=== PATIENT | female | born 1995 | race Caucasian/White ===

== ENCOUNTER 2017-10-30 15:52 | Emergency (ER) | payer BC ==
[2017-10-30 16:17] VITALS: BP 119/72
--- NOTE | 2017-10-30 16:54 | UC ---
Respiratory Complaint HPI - HPI Summary HPI Summary: Fever on . Woke up the next day with cough. Wheezing. Productive. Sinus pain. - History of Current Complaint Chief Complaint: UCRespiratory Stated Complaint: COUGH Time Seen by Provider: 10/30/17 16:40 Hx Obtained From: Patient Hx Last Menstrual Period: 09/30/17 ?: No Onset/Duration: Sudden Onset - 3, Lasting Days - 3, Worse Since - onset Timing: Constant Severity Initially: Mild Severity Currently: Moderate Pain Intensity: 0 Character: Cough: Productive Associated Signs And Symptoms: Positive: Fever, Wheezing, URI, Nasal Congestion , Hoarseness, Sinus Discomfort - Allergies/Home Medications Allergies/Adverse Reactions: Allergies Allergy/AdvReac Type Severity Reaction Status Date / Time No Known Allergies Allergy Verified 10/30/17 16:10 Home Medications: Home Medications Dextromethorphan Polistirex [Delsym] 30 mg PO BID PRN 10/30/17 [History Confirmed 10/30/17] diPHENhydraMINE PO* [Benadryl PO 25 MG TAB*] 25 mg PO Q6H PRN 10/30/17 [History Confirmed 10/30/17] PMH/Surg Hx/FS Hx/Imm Hx Previously Healthy: Yes - Surgical History Surgical History: None - Family History Known Family History: Positive: Hypertension Negative: Diabetes - Social History Occupation: Employed Full-time Lives: With Family - girlfriend Alcohol Use: None Substance Use Type: None Smoking Status (MU): Light Every Day Tobacco Smoker Type: Cigarettes Amount Used/How Often: 2 cigarettes daily- quit 1 week ago Review of Systems Constitutional: Fever ENT: Sinus Pain/Tenderness Respiratory: Shortness Of Breath, Cough Is Patient Immunocompromised?: No All Other Systems Reviewed And Are Negative: Yes Physical Exam Triage Information Reviewed: Yes Appearance: No Pain Distress, Well-Nourished, Ill-Appearing Vital Signs: Initial Vital Signs Temp 99.4 F 10/30/17 16:12 Pulse 100 10/30/17 16:12 Resp 16 10/30/17 16:12 BP 119/72 10/30/17 16:12 Pulse Ox 100 10/30/17 16:12 Vital Signs Reviewed: Yes Eyes: Positive: Conjunctiva Clear ENT: Positive: Pharynx normal, Nasal congestion - with allergic changes.. Negative: TMs normal - with retraction Neck exam: Normal Respiratory: Positive: Wheezing - expiratory wheeze with coughing Cardiovascular Exam: Normal Musculoskeletal Exam: Normal Neurological Exam: Normal Psychological Exam: Normal Skin Exam: Normal UC Diagnostic Evaluation - Laboratory O2 Sat by Pulse Oximetry: 100 Respiratory Course/Dx - Differential Dx/Diagnosis Differential Diagnosis/HQI/PQRI: Asthma, Exacerbation Of COPD, Lower Resp Infection, Sinusitis Provider Diagnoses: Acute URI. Acute sinusitis. Acute bronchospasm. Allergic rhinitis. Discharge - Sign-Out/Discharge Documenting (check all that apply): Discharge/Admit/Transfer - Discharge Plan Condition: Stable Disposition: HOME Prescriptions: Amoxicillin PO (*) [Amoxicillin 875 MG (*)] 875 mg PO BID #20 tab predniSONE TAB* [Deltasone TAB*] 20 mg PO DAILY #18 tab Patient Education Materials: Upper Respiratory Infection (ED), Bronchospasm (ED ), Sinusitis (ED), Amoxicillin (By mouth), Prednisone (By mouth) Referrals: Non Staff,Doctor [Primary Care Provider] - Additional Instructions: [email or web address] SINUS RINSE: CHECK OUT AT [email or web address] Saline nasal wash helps with mucous, allergies and congestion. It can be used up to twice a day or only as needed. Use lukewarm tap water. It does not have to be sterilized or distilled water. Do 1/3 on each side and snort out of both nostrils. Repeat the process with 1/6 of the bottle on each side with snorting in between to finish the solution in the bottle - Billing Disposition and Condition Condition: STABLE Disposition: HOME
== END 2017-10-30 17:09 | disposition home or self-care (01) ==
LOC: UCCORT 15:52
DX: J06.9 Acute upper respiratory infection, unspecified (principal); J01.90 Acute sinusitis, unspecified; J98.01 Acute bronchospasm; J30.9 Allergic rhinitis, unspecified; F17.210 Nicotine dependence, cigarettes, uncomplicated
CPT/HCPCS: 99202; G0463

== ENCOUNTER 2018-12-13 17:32 | Emergency (ER) | payer BC ==
[2018-12-13 18:40] VITALS: BP 128/69
--- NOTE | 2018-12-13 18:59 | UC ---
Lower Extremity/Ankle HPI - HPI Summary HPI Summary: hit right foot on sofa last night pain and bruising 3/4/5 distal metatarsal---n/ m/c intact is able to WB - History of Current Complaint Chief Complaint: UCLowerExtremity Stated Complaint: RIGHT FOOT INJURY Time Seen by Provider: 12/13/18 18:50 Hx Obtained From: Patient Hx Last Menstrual Period: 11/26/18 ?: No Onset/Duration: Sudden Onset Pain Intensity: 6 - refused pain medication Pain Scale Used: 0-10 Numeric Aggravating Factor(s): Standing, Ambulation Alleviating Factor(s): Rest, Elevation, OTC Meds Able to Bear Weight: Yes - Allergies/Home Medications Allergies/Adverse Reactions: Allergies Allergy/AdvReac Type Severity Reaction Status Date / Time No Known Allergies Allergy Verified 12/13/18 18:33 Home Medications: Home Medications NK [No Home Medications Reported] 12/13/18 [History Confirmed 12/13/18] PMH/Surg Hx/FS Hx/Imm Hx Previously Healthy: Yes - Surgical History Surgical History: None - Family History Known Family History: Positive: Hypertension Negative: Diabetes - Social History Occupation: Employed Full-time Lives: With Family Alcohol Use: Occasionally Substance Use Type: None Smoking Status (MU): Former Smoker Type: Cigarettes Amount Used/How Often: 2 cigarettes daily- quit 1 week ago Have You Smoked in the Last Year: No When Did the Patient Quit Smoking/Using Tobacco: SUMMER 2017 Review of Systems All Other Systems Reviewed And Are Negative: Yes Constitutional: Positive: Negative Skin: Positive: Bruising - right 3,4,5 distal foot Eyes: Positive: Negative ENT: Positive: Negative Respiratory: Positive: Negative Cardiovascular: Positive: Negative Gastrointestinal: Positive: Negative Genitourinary: Positive: Negative Motor: Positive: Negative Neurovascular: Positive: Negative Musculoskeletal: Positive: Negative Neurological: Positive: Negative Psychological: Positive: Negative Is Patient Immunocompromised?: No Physical Exam Triage Information Reviewed: Yes Appearance: Well-Appearing, No Pain Distress, Well-Nourished Vital Signs: Initial Vital Signs Temp 98.2 F 12/13/18 18:33 Pulse 62 12/13/18 18:33 Resp 16 12/13/18 18:33 BP 128/69 12/13/18 18:33 Pulse Ox 100 12/13/18 18:33 Vital Signs Reviewed: Yes Eye Exam: Normal Eyes: Positive: Conjunctiva Clear ENT Exam: Normal ENT: Positive: Normal ENT inspection, Hearing grossly normal. Negative: Trismus , Muffled voice, Hoarse voice Dental Exam: Normal Neck exam: Normal Neck: Positive: Supple, Nontender, No Lymphadenopathy Respiratory Exam: Normal Respiratory: Positive: Chest non-tender, No respiratory distress, No accessory muscle use Cardiovascular Exam: Normal Cardiovascular: Positive: RRR, Pulses Normal, Brisk Capillary Refill Musculoskeletal Exam: Normal Musculoskeletal: Positive: Strength Intact, ROM Intact, Edema @ - 3/4/5 mt area distally bruised and swollen Neurological Exam: Normal Neurological: Positive: Alert, Muscle Tone Normal Psychological Exam: Normal Psychological: Positive: Normal Response To Family, Age Appropriate Behavior Skin Exam: Normal Diagnostics - Radiology No standard instances Summary of Radiographic Findings: fx proximal base 5th toe Lower Extremity Course/Dx - Course Course Of Treatment: post op shoe, rice, ibuprofen follow with Dr. Solis this week - Differential Dx/Diagnosis Provider Diagnosis: Fracture of fifth toe, right, closed Discharge - Sign-Out/Discharge Documenting (check all that apply): Patient Departure All imaging exams completed and their final reports reviewed: No - Discharge Plan Condition: Stable Disposition: HOME Patient Education Materials: Ibuprofen (By mouth), Toe Fracture (ED), R.I.C.E. Treatment (ED) Referrals: Raghav Solis MD [Medical Doctor] - 3 Days - Billing Disposition and Condition Condition: STABLE Disposition: Home
--- NOTE | 2018-12-14 07:58 | UC ---
- Progress Note Progress Note: No change from initial management - patient to follow up with Orthopedics - EKG/XRAY/CT Xray Comments: right nondisplace fracture base of 5th proximal phalange Course/Dx - Diagnoses Provider Diagnoses: Fracture of fifth toe, right, closed Discharge - Sign-Out/Discharge Documenting (check all that apply): Post-Discharge Follow Up All imaging exams completed and their final reports reviewed: Yes - Discharge Plan Condition: Stable Disposition: HOME Patient Education Materials: Ibuprofen (By mouth), Toe Fracture (ED), R.I.C.E. Treatment (ED) Referrals: Raghav Solis MD [Medical Doctor] - 3 Days - Billing Disposition and Condition Condition: STABLE Disposition: Home
== END 2018-12-13 19:30 | disposition home or self-care (01) ==
LOC: UCCORT 17:32
DX: S92.514A Nondisplaced fracture of proximal phalanx of right lesser toe(s), initial encounter for closed fracture (principal); W22.03XA Walked into furniture, initial encounter; Y92.9 Unspecified place or not applicable; Z87.891 Personal history of nicotine dependence
CPT/HCPCS: 99212; G0463

== ENCOUNTER 2019-01-02 09:18 | Emergency (ER) | payer BC ==
[2019-01-02 09:35] VITALS: BP 114/64
--- NOTE | 2019-01-02 09:45 | UC ---
Abdominal Pain Female HPI - HPI Summary HPI Summary: Pt presents with c/o sudden onset of abdominal discomfort, nausea and loose stools X 3 days. Pt denies fever or chills. Denies risk for or urinary symptoms. - History of Current Complaint Chief Complaint: UCGI Stated Complaint: NAUSEA,DIARRHEA Time Seen by Provider: 01/02/19 09:30 Hx Obtained From: Patient Hx Last Menstrual Period: 12/26/18 ?: No Onset/Duration: Sudden Onset, Lasting Days, Still Present Timing: Constant Severity Initially: Mild Severity Currently: Mild Pain Intensity: 4 Location: Diffuse Radiates: No Character: Colicy, Cramping, Dull Aggravating Factor(s): Food Alleviating Factor(s): Antacids - OTC tums gives temporary relief. Associated Signs and Symptoms: Positive: Decreased Appetite, Nausea, Diarrhea - Risk Factors Ectopic Risk Factor: Negative Ovarian Torsion Risk Factor: Reproductive Age Allergies/Adverse Reactions: Allergies Allergy/AdvReac Type Severity Reaction Status Date / Time No Known Allergies Allergy Verified 01/02/19 09:27 Home Medications: Home Medications Calcium Carbonate CHEW TAB* [Tums*] 1,000 mg PO Q4H PRN 01/02/19 [History Confirmed 01/02/19] Ibuprofen TAB* [Advil TAB*] 200 mg PO BID PRN 01/02/19 [History Confirmed ] PMH/Surg Hx/FS Hx/Imm Hx Previously Healthy: Yes - Surgical History Surgical History: None - Family History Known Family History: Positive: Hypertension Negative: Diabetes - Social History Occupation: Employed Full-time Lives: With Family Alcohol Use: Occasionally Substance Use Type: None Smoking Status (MU): Former Smoker Type: Cigarettes Amount Used/How Often: 2 cigarettes daily- quit 1 week ago Have You Smoked in the Last Year: No When Did the Patient Quit Smoking/Using Tobacco: SUMMER 2017 - Immunization History Vaccination Up to Date: Yes Review of Systems All Other Systems Reviewed And Are Negative: Yes Constitutional: Positive: Fatigue Skin: Positive: Negative Eyes: Positive: Negative ENT: Positive: Negative Respiratory: Positive: Negative Cardiovascular: Positive: Negative Gastrointestinal: Positive: Abdominal Pain, Diarrhea, Nausea Genitourinary: Positive: Negative Motor: Positive: Negative Neurovascular: Positive: Negative Musculoskeletal: Positive: Negative Neurological: Positive: Negative Psychological: Positive: Negative Is Patient Immunocompromised?: No Physical Exam Triage Information Reviewed: Yes Appearance: Well-Appearing Vital Signs: Initial Vital Signs Temp 97.1 F 01/02/19 09:29 Pulse 59 01/02/19 09:29 Resp 15 01/02/19 09:29 BP 114/64 01/02/19 09:29 Pulse Ox 100 01/02/19 09:29 Vital Signs Reviewed: Yes Eye Exam: Normal ENT Exam: Normal ENT: Positive: Hearing grossly normal Dental Exam: Normal Neck exam: Normal Respiratory Exam: Normal Respiratory: Positive: Normal breath sounds Cardiovascular Exam: Normal Abdomen Description: Positive: Other: - generalized discomfort Bowel Sounds: Positive: Present Musculoskeletal Exam: Normal Neurological Exam: Normal Psychological Exam: Normal Skin Exam: Normal Abd Pain Female Course/Dx - Course Course Of Treatment: Pt was advised to take OTC anti-diarrhea medication as needed. - Differential Dx/Diagnosis Differential Diagnosis: Irritable Bowel Syndrome, Other - gastroenteritis Provider Diagnosis: Gastroenteritis, Nausea Discharge - Sign-Out/Discharge Documenting (check all that apply): Patient Departure All imaging exams completed and their final reports reviewed: No Studies - Discharge Plan Condition: Stable Disposition: HOME Prescriptions: Ondansetron HCl [Zofran] 4 mg PO Q8H PRN #9 tablet PRN Reason: Nausea Patient Education Materials: Loperamide (By mouth), Gastroenteritis (ED) Forms: *Work Release Referrals: [facility] [place] [facility] [Outside] No Primary Care Phys,NOPCP [Primary Care Provider] - - Billing Disposition and Condition Condition: STABLE Disposition: Home - Attestation Statements Provider Attestation: I was available for consult. This patient was seen by the ARCHIE. The patient was not presented to, seen by, or examined by me. -Kayode
== END 2019-01-02 10:01 | disposition home or self-care (01) ==
LOC: UCCORT 09:18
DX: K52.9 Noninfective gastroenteritis and colitis, unspecified (principal); R11.0 Nausea; Z87.891 Personal history of nicotine dependence
CPT/HCPCS: 99212; G0463

== ENCOUNTER 2019-01-17 12:02 | Emergency (ER) | payer BC ==
[2019-01-17 13:52] LABS: Hematocrit 46 % (35-47); Hemoglobin 15.5 g/dL (12.0-16.0); Mean Corpuscular HGB Conc 34 g/dL (31-36); Mean Corpuscular Hemoglobin 30 pg (27-31); Mean Corpuscular Volume 87 fL (80-97); Red Blood Count 5.23 10^6 /uL (3.70-4.87); Red Cell Distribution Width 13 % (10-15)
[2019-01-17 14:10] LABS: HCG Pregnancy < 0.60 mIU/mL
[2019-01-17 14:11] LABS: ALT 20 U/L (7-52); AST 18 U/L (13-39); Albumin 4.7 g/dL (3.2-5.2); Albumin/Globulin Ratio 1.3 (1-3); Alkaline Phosphatase 68 U/L (34-104); Anion Gap 7 mmol/L (2-11); BUN/Creatinine Ratio 11.1 (8-20); Blood Urea Nitrogen 8 mg/dL (6-24); C Reactive Protein 7.72 mg/L (<8.01); CO2 Carbon Dioxide 25 mmol/L (22-32); Calcium 9.9 mg/dL (8.6-10.3); Chloride 105 mmol/L (101-111); EGFR African American 123.7 (>60); EGFR Non-African American 102.3 (>60); Globulin 3.5 g/dL (2-4); Glucose 97 mg/dL (70-100); Sodium 137 mmol/L (135-145); Total Protein 8.2 g/dL (6.4-8.9)
[2019-01-17 14:12] LABS: ABS Basophils 0.1 10^3/ul (0-0.2); ABS Eosinophils 0.1 10^3/ul (0-0.6); ABS Monocytes 0.8 10^3/ul (0-0.8); ABS Neutrophils 10.1 10^3/ul (1.5-7.7); Eosinophil % 0.5 %; Lymphocyte % 15.2 %; Mean Platelet Volume 10.1 fL (7.4-10.4); Platelet Count 245 10^3/uL (150-450)
[2019-01-17 14:15] LABS: Urine Appearance Clear; Urine Bilirubin Negative (Negative); Urine Blood Negative (Negative); Urine Color Yellow; Urine Glucose Negative (Negative); Urine Ketones Negative (Negative); Urine Nitrite Negative (Negative); Urine Protein Negative (Negative); Urine Specific Gravity 1.011 (1.010-1.030); Urine Urobilinogen Negative (Negative)
--- NOTE | 2019-01-17 14:51 | ED ---
Dizziness - HPI Summary HPI Summary: Patient is a 23-year-old female who is otherwise healthy presenting to the ED with a one-month history of dizziness every morning after awakening. She is also endorsing some nausea without vomiting. Patient states symptoms have remained constant for approximately 1 month and she has been seen by 2 different hospitals, however a CT or lab work was never obtained during these visits. She denies chance of . She denies SOB, CP, abdominal pain, urinary symptoms, back pain, bleeding or visual disturbances. Patient states her symptoms are constant every morning for approximately 2-3 hours after awakening. She states she feels dizzy, however denies any lack of coordination or imbalance issues. She continues to be able to complete her ADLs in the a.m. , however she states symptoms are definitely worse after getting into the shower. Symptoms resolved by noon every day and she denies any other and denies any JAY. Denies history of hypertension, anxiety. Partner is at bedside. S She states today's the first day she became dizzy to the point of "passing out" falling over and hitting her head on the nightstand. She is endorsing right- sided head pain which is rated a 3/10. She denies any visual changes. Sxs occurred several hours ago this AM. - History Of Current Complaint Chief Complaint: EDHeadInjury Stated Complaint: DIZZY, HIT HER HEAD ON A DRESSER THIS MORNING PER Time Seen by Provider: 01/17/19 12:43 Hx Obtained From: Patient Timing: Constant Severity Initially: Moderate Severity Currently: None Character: Dizzy Aggravating Factor(s): Nothing Alleviating Factor(s): Nothing Associated Signs And Symptoms: Positive: Nausea - Risk Factors Cardiac Risk Factors: Negative CVA Risk Factor: Negative - Allergies/Home Medications Allergies/Adverse Reactions: Allergies Allergy/AdvReac Type Severity Reaction Status Date / Time No Known Allergies Allergy Unverified 01/17/19 12:07 PMH/Surg Hx/FS Hx/Imm Hx Previously Healthy: Yes - Immunization History Hx Pertussis Vaccination: No Immunizations Up to Date: Yes Infectious Disease History: No Infectious Disease History: Denies: Traveled Outside the [place] in Last 30 Days - Family History Known Family History: Positive: Hypertension Negative: Diabetes - Social History Occupation: Employed Part-time Lives: With Family Alcohol Use: Occasionally Hx Substance Use: No Substance Use Type: Reports: None Hx Tobacco Use: Yes Smoking Status (MU): Former Smoker Type: Cigarettes Amount Used/How Often: 2 cigarettes daily- quit 1 week ago Have You Smoked in the Last Year: No Review of Systems Constitutional: Negative Negative: Fever, Chills, Fatigue, Skin Diaphoresis Negative: Palpitations, Chest Pain Negative: Shortness Of Breath, Cough Genitourinary: Negative Positive: no symptoms reported, see HPI Negative: Arthralgia, Myalgia Neurological: Other - dizziness Psychological: Normal All Other Systems Reviewed And Are Negative: Yes Physical Exam Triage Information Reviewed: Yes Vital Signs On Initial Exam: Initial Vitals Temp Pulse Resp BP Pulse Ox 98.5 F 62 15 149/99 100 01/17/19 12:07 01/17/19 12:07 01/17/19 12:07 01/17/19 12:07 01/17/19 12:07 Vital Signs Reviewed: Yes Appearance: Positive: Well-Appearing, Well-Nourished Skin: Positive: Warm, Skin Color Reflects Adequate Perfusion Head/Face: Positive: Normal Head/Face Inspection Eyes: Positive: EOMI, SALVATORE, Conjunctiva Clear Neck: Positive: Supple, No Lymphadenopathy Respiratory/Lung Sounds: Positive: Clear to Auscultation, Breath Sounds Present Cardiovascular: Positive: RRR, Pulses are Symmetrical in both Upper and Lower Extremities. Negative: Tachycardia, Leg Edema Left, Leg Edema Right Bowel Sounds: Positive: Present Musculoskeletal: Positive: Normal, Strength/ROM Intact Neurological: Positive: Speech Normal Psychiatric: Positive: Normal, Affect/Mood Appropriate AVPU Assessment: Alert Diagnostics - Vital Signs Vital Signs Temp Pulse Resp BP Pulse Ox 01/17/19 12:07 98.5 F 62 15 149/99 100 - Laboratory Lab Results: Lab Results 01/17/19 01/17/19 01/17/19 Range/Units 13:33 13:33 13:35 WBC 13.0 H (3.5-10.8) 10^3/uL RBC 5.23 H (3.70-4.87) 10^6 /uL Hgb 15.5 (12.0-16.0) g/dL Hct 46 (35-47) % MCV 87 (80-97) fL MCH 30 (27-31) pg MCHC 34 (31-36) g/dL RDW 13 (10-15) % Plt Count 245 (150-450) 10^3/uL MPV 10.1 (7.4-10.4) fL Neut % (Auto) 77.6 % Lymph % (Auto) 15.2 % [place] % (Auto) 6.0 % Eos % (Auto) 0.5 % Baso % (Auto) 0.7 % Absolute Neuts (auto) 10.1 H (1.5-7.7) 10^3/ul Absolute Lymphs (auto) 2.0 (1.0-4.8) 10^3/ul Absolute Monos (auto) 0.8 (0-0.8) 10^3/ul Absolute Eos (auto) 0.1 (0-0.6) 10^3/ul Absolute Basos (auto) 0.1 (0-0.2) 10^3/ul Absolute Nucleated RBC 0.0 10^3/ul Nucleated RBC % 0.0 Sodium 137 (135-145) mmol/L Potassium 4.0 (3.5-5.0) mmol/L Chloride 105 (101-111) mmol/L Carbon Dioxide 25 (22-32) mmol/L Anion Gap 7 (2-11) mmol/L BUN 8 (6-24) mg/dL Creatinine 0.72 (0.51-0.95) mg/dL Est GFR ( Amer) 123.7 (>60) Est GFR (Non-Af Amer) 102.3 (>60) BUN/Creatinine Ratio 11.1 (8-20) Glucose 97 (70-100) mg/dL Calcium 9.9 (8.6-10.3) mg/dL Total Bilirubin 0.40 (0.2-1.0) mg/dL AST 18 (13-39) U/L ALT 20 (7-52) U/L Alkaline Phosphatase 68 (34-104) U/L C-Reactive Protein 7.72 (<8.01) mg/L Total Protein 8.2 (6.4-8.9) g/dL Albumin 4.7 (3.2-5.2) g/dL Globulin 3.5 (2-4) g/dL Albumin/Globulin Ratio 1.3 (1-3) Beta HCG, Quant < 0.60 mIU/mL Urine Color Yellow Urine Appearance Clear Urine pH 7.0 (5-9) Ur Specific [place] 1.011 (1.010-1.030) Urine Protein Negative (Negative) Urine Ketones Negative (Negative) Urine Blood Negative (Negative) Urine Nitrate Negative (Negative) Urine Bilirubin Negative (Negative) Urine Urobilinogen Negative (Negative) Ur Leukocyte Esterase Negative (Negative) Urine Glucose Negative (Negative) Result Diagrams: 01/17/19 13:33 01/17/19 13:33 Lab Statement: Any lab studies that have been ordered have been reviewed, and results considered in the medical decision making process. Dizzy Course/Dx - Course Course Of Treatment: This patient is evaluated for right-sided hand injury following the loss of consciousness this morning. She states she's been dizzy over the past 2 months every morning upon wakening N until about noon that day. She has not taken any medications. She continues to eat and drink okay. She denies any shortness of breath, visual changes or disturbances, CP, abdominal pain or other symptoms. She denies chance of . Denies any excess bleeding. Labs obtained which are WNL except for a slightly elevated white count at 13,000. This patient has remained dizzy 2 months as well as right- sided head injury today after an LOC, CT brain was obtained for these reasons. CT brain shows no intracranial findings. Patient denies any headache or dizziness at this time. She is dx with dizziness, given meclizine and Zofran and encouraged close follow-up with neurology. - Diagnoses Provider Diagnoses: Dizziness Discharge - Sign-Out/Discharge Documenting (check all that apply): Patient Departure Patient Received Moderate/Deep Sedation with Procedure: No - Discharge Plan Condition: Good Disposition: HOME Prescriptions: Meclizine TAB* [Antivert 12.5 TAB*] 12.5 mg PO TID PRN #30 tab MDD 3 PRN Reason: Dizziness Ondansetron ODT TAB* [Zofran 4 MG Odt TAB*] 4 mg PO Q6H PRN #12 tab.odt MDD 4 PRN Reason: Nausea Patient Education Materials: Dizziness (ED) Forms: *Work Release Referrals: [facility] [Outside] Cecilia Lange MD [Medical Doctor] - No Primary Care Phys,NOPCP [Primary Care Provider] - Additional Instructions: Please follow up with neurology for any worsening or changing symptoms You may always return to the ED if any symptoms become worse Zofran up to 4 times daily as needed for nausea Meclizine up to 3 times daily as needed for dizziness I would recommend taking Zofran first thing in the morning, eating a small amount of cereal or crackers and then taking the meclizine Make sure you're drinking plenty of water - Billing Disposition and Condition Condition: GOOD Disposition: Home
[2019-01-17 15:14] VITALS: BP 132/84
== END 2019-01-17 15:13 | disposition home or self-care (01) ==
LOC: EDUNIT# → ED 12:02
DX: R42 Dizziness and giddiness (principal); S06.9X9A Unspecified intracranial injury with loss of consciousness of unspecified duration, initial encounter; W18.09XA Striking against other object with subsequent fall, initial encounter; Y92.003 Bedroom of unspecified non-institutional (private) residence as the place of occurrence of the external cause; R11.0 Nausea; Z87.891 Personal history of nicotine dependence
CPT/HCPCS: 36415; 70450; 80053; 81003; 84702; 85025; 86140; 99282